=== PATIENT | female | born 1990 | race Caucasian/White ===

== ENCOUNTER 2016-12-25 18:25 | Emergency (ER) | payer MEDICAID ==
[~2016-12-25] VITALS: Ht 157.5 cm; Wt 66.6 kg
[~2016-12-25 18:25] MED LIST: FERR27TA PO; PREN1TAB49 PO
[2016-12-25 18:51] VITALS: Ht 157.5 cm; Wt 66.6 kg
[2016-12-25 21:04] LABS: ADD UMIC YES; URINE BILIRUBIN (Dip) NEGATIVE (NEGATIVE); URINE BLOOD (Dip) 3+ (NEGATIVE); URINE COLOR LT. YELLOW (YELLOW); URINE GLUCOSE (Dip) NEGATIVE (NEGATIVE); URINE KETONES (Dip) NEGATIVE (NEGATIVE); URINE LEUKOCYTE ESTERASE (Dip) 1+ (NEGATIVE); URINE NITRITE (Dip) NEGATIVE (NEGATIVE); URINE TOTAL PROTEIN (Dip) NEGATIVE (NEGATIVE); URINE UROBILINOGEN (Dip) 0.2 E.U./dL (0.1-1.0)
[2016-12-25 21:09] LABS: BASOPHILS % 0.4 % (0.0-2.0); EOSINOPHILS # 0.2 10^3/ul (0.0-0.5); EOSINOPHILS % 1.5 % (0.0-7.0); HEMATOCRIT 41.9 % (37.0-47.0); HEMOGLOBIN 14.2 g/dl (12.0-16.0); LYMPHOCYTES # 3.3 10^3/ul (0.8-2.9); LYMPHOCYTES % 28.2 % (15.0-51.0); MEAN CORPUSCULAR HEMOGLOBIN 30.2 pg (29.0-33.0); MEAN CORPUSCULAR HGB CONC 33.8 g/dl (32.0-37.0); MEAN CORPUSCULAR VOLUME 89.3 fl (82.0-101.0); MEAN PLATELET VOLUME 9.2 fl (7.4-10.4); MONOCYTE # 0.6 10^3/ul (0.3-0.9); MONOCYTES % 5.5 % (0.0-11.0); NEUTROPHIL # 7.4 10^3/ul (1.6-7.5); NEUTROPHILS % 64.4 % (39.0-77.0); PLATELET COUNT 228 10^3/UL (140-440); RED CELL DISTRIBUTION WIDTH 13.9 % (11.5-14.5); UNCORRECTED WBC 11.6 10^3/ul (4.8-10.8); WHITE BLOOD COUNT 11.6 10^3/ul (4.8-10.8)
[2016-12-25 21:13] LABS: BACTERIA,URINE FEW
[2016-12-25 21:14] LABS: CONDITION 1
--- NOTE | 2016-12-25 21:25 | RADRPT ---
PROCEDURE: US OB. CLINICAL INDICATION: Positive , vaginal bleeding TECHNIQUE: Transabdominal and transvaginal views of the pelvis are available for review. COMPARISON: No prior studies are available for comparison. FINDINGS: Uterus: Normal. There is no evidence of myometrial mass. Endometrial cavity: No intrauterine is identified, the thickness is normal measuring 7.9 mm. Right ovary / adnexa: Ovarian size is normal measuring 2.6 x 2.4 x 1.2 cm and there is no evidence of adnexal mass. Normal blood flow on Doppler interrogation is present. Left ovary/adnexa: Ovarian size is normal measuring 2.9 x 2.3 x 1.8 cm with no evidence of adnexal mass. Possible corpus luteum cyst of 1.7 x 1.2 x 1.1 cm is suggested. Normal blood flow seen on Dopp ler interrogation. Cul-de-sac: No evidence of free fluid. RPTAT:HJJR IMPRESSION: No intrauterine identified. Ectopic is not excluded, but there are no suspiciou s findings at this time. Correlation with serial beta HCGs is suggested with followup as clinically indicated. Physician Raf Date Time Electronically viewed and signed by Physician Raf on 12/25/2016 21:25 /
[2016-12-25 23:08] VITALS: BP 109/61; PULSE 59; RESP 18; TEMP 98.4
--- NOTE | 2016-12-26 01:41 | ERD ---
ER Documentation Chief Complaint Date/Time DATE: 12/26/16 TIME: 01:38 Chief Complaint Vag bleed. 5 wks . seen in [facility] ER yesterday on antibiotics HPI 26-year-old female who is a presents the ED complaining of vaginal bleeding that started 3 days ago. States that she was seen at [facility] and was discharged with a urinary tract infection and was prescribed Keflex. Reports that she has been taking it for 2 days. States that there was no heart tones noted on the ultrasound. States that she has had to change one pad. Reports that she has hematuria. States that her last menses was on November 08, 2016. Denies any chest pain, shortness of breath, abdominal pain, nausea, vomiting, diarrhea. States that she is unsure of her [employer] name. ROS All systems reviewed and are negative except as per history of present illness. Medications Home Meds Reported Medications Vits W-Ca,Fe,Fa(<1MG) () 1 Tab Tablet, 1 TAB PO 08/27/12 Ferrous Sulfate (Iron) 1 Tab Tablet, 1 TAB PO 08/27/12 Allergies Allergies: Coded Allergies: No Known Allergies (Verified Allergy, 08/27/12) PMhx/Soc Medical and Surgical Hx: pt denies Surgical Hx History of Surgery: No Anesthesia Reaction: No Hx Neurological Disorder: No Hx Respiratory Disorders: No Hx Cardiac Disorders: No Hx Psychiatric Problems: No Hx Miscellaneous Medical Probl: Yes (UTI diagnosed 12/2016) Hx Alcohol Use: No Hx Substance Use: No Hx Tobacco Use: No Smoking Status: Never smoker Physical Exam Vitals Temp 98.4 Pulse 70 SBP 119 DBP 61 Resp 187 O2 Sat 100 Pain Intensity 2 Physical Exam Const: [id number]-[id number], well-nourished. In no acute distress. Head: Atraumatic, normocephalic Eyes: Normal Conjunctiva without injection. No purulent discharge. ENT: Normal external ear, nose. Moist oropharynx without tonsillar exudates. Non -erythematous pharynx. Uvula midline. No drooling. No trismus. Neck: No cervical midline tenderness. Full range of motion. No meningismus. No cervical lymphadenopathy. No JVD. Resp: Clear to auscultation bilaterally. No wheezing, rhonchi, rales, or crackles. No accessory muscle use. No retractions. Cardio: Regular rate and rhythm. No murmurs, rubs or gallops. Abd: Soft, nontender to palpation, non distended. Normal bowel sounds. No palpable masses. No rebound tenderness. No guarding. Negative McBurney's point. Negative psoas sign. Negative obturator sign. Skin: No petechiae or rashes Back: No midline tenderness. No CVA tenderness. Ext: No cyanosis, or edema. Neur: Awake and alert. Normal gait. Normal coordination. Psych: Normal Mood and Affect Results 24 hrs Laboratory Tests Test 12/25/16 20:47 Basophils # 0.010^3/ul Basophils % 0.4% Beta HCG, Quantitative 107.1mIU/ml Eosinophils # 0.210^3/ul Eosinophils % 1.5% Hematocrit 41.9% Hemoglobin 14.2g/dl Lymphocytes # 3.310^3/ul Lymphocytes % 28.2% Mean Corpuscular Hemoglobin 30.2pg Mean Corpuscular Hemoglobin Concent 33.8g/dl Mean Corpuscular Volume 89.3fl Mean Platelet Volume 9.2fl Monocytes # 0.610^3/ul Monocytes % 5.5% Neutrophils # 7.410^3/ul Neutrophils % 64.4% Nucleated Red Blood Cells # 0.010^3/ul Nucleated Red Blood Cells % 0.0/100WBC Platelet Count 62090^3/UL Red Blood Count 4.7010^6/ul Red Cell Distribution Width 13.9% Urine Bacteria FEW Urine Bilirubin NEGATIVE Urine Clarity SLIGHTLY CLOUDY Urine Color LT. YELLOW Urine Epithelial Cells MODERATE Urine Glucose NEGATIVE% Urine Hemoglobin 3+ Urine Ketones NEGATIVE Urine Leukocyte Esterase 1+ Urine Microscopic RBC 5-10/HPF Urine Microscopic WBC 10-25/HPF Urine Nitrite NEGATIVE Urine Specific [place] 1.025 Urine Total Protein NEGATIVE Urine Urobilinogen 0.2 E.U./dL Urine pH 6.0 White Blood Count 11.610^3/ul Procedures/MDM 26-year-old female with no significant past medical history presents the ED as a for vaginal bleeding. Patient is afebrile nontoxic appearing. Patient has normal vital signs. An ultrasound, beta-hCG, CBC, type and RH, UA was ordered to evaluate patient. CBC: Leukocytosis of 11.6 likely due to stress reaction or anemia Urine: No elevation in nitrites, 1+ leukocyte esterase with 10-25 WBC, hematuria. No evidence of UTI Rh: O positive No indication for Rhogam at this time. beta Hc.1 PROCEDURE: US OB. CLINICAL INDICATION: Positive , vaginal bleeding TECHNIQUE: Transabdominal and transvaginal views of the pelvis are available for review. COMPARISON: No prior studies are available for comparison. FINDINGS: Uterus: Normal. There is no evidence of myometrial mass. Endometrial cavity: No intrauterine is identified, the thickness is normal measuring 7.9 mm. Right ovary / adnexa: Ovarian size is normal measuring 2.6 x 2.4 x 1.2 cm and there is no evidence of adnexal mass. Normal blood flow on Doppler interrogation is present. Left ovary/adnexa: Ovarian size is normal measuring 2.9 x 2.3 x 1.8 cm with no evidence of adnexal mass. Possible corpus luteum cyst of 1.7 x 1.2 x 1.1 cm is suggested. Normal blood flow seen on Doppler interrogation. Cul-de-sac: No evidence of free fluid. RPTAT:HJJR IMPRESSION: No intrauterine identified. Ectopic is not excluded, but there are no suspicious findings at this time. Correlation with serial beta HCGs is suggested with followup as clinically indicated. Patient's bleeding symptoms have stabilized while in the department. At this time there is no IUP identified. Patient was instructed to return to the ED in 2 days for a repeat beta hCG and ultrasound to rule out ectopic . Low suspicion for symptomatic anemia, sepsis, PID, appendicitis, ovarian torsion, tubo-ovarian abscess, surgical abdomen, or other emergent conditions. Patient was educated that there is a risk for threatened . Strictly instructed patient to continue taking Keflex prescribed by previous provider for her UTI. Patient to follow up with [employer] or here in the ED in 2 days for further evaluation and treatment. Patient is to return sooner to the ED for any worsening symptoms. Patient's questions were answered. Patient understood and agreed with discharge plan. Departure Diagnosis: Primary Impression: Vaginal bleeding in patient at less than 20 weeks ges... Condition: Stable Patient Instructions: Bleeding During Early Referrals: COMMUNITY CLINICS YOU HAVE RECEIVED A MEDICAL SCREENING EXAM AND THE RESULTS INDICATE THAT YOU DO NOT HAVE A CONDITION THAT REQUIRES URGENT TREATMENT IN THE EMERGENCY DEPARTMENT. FURTHER EVALUATION AND TREATMENT OF YOUR CONDITION CAN WAIT UNTIL YOU ARE SEEN IN YOUR DOCTORS OFFICE WITHIN THE NEXT 1-2 DAYS. IT IS YOUR RESPONSIBILITY TO MAKE AN APPOINTMENT FOR FOLOW-UP CARE. IF YOU HAVE A PRIMARY DOCTOR --you should call your primary doctor and schedule an appointment IF YOU DO NOT HAVE A PRIMARY DOCTOR YOU CAN CALL OUR PHYSICIAN REFERRAL HOTLINE AT IF YOU CAN NOT AFFORD TO SEE A PHYSICIAN YOU CAN CHOSE FROM THE FOLLOWING [facility] [address] [facility] [address] [facility] [address] [facility] [address] [facility] [address] [facility] [facility] [address] [facility]. [facility] YOU HAVE RECEIVED A MEDICAL SCREENING EXAM AND THE RESULTS INDICATE THAT YOU DO NOT HAVE A CONDITION THAT REQUIRES URGENT TREATMENT IN THE EMERGENCY DEPARTMENT. FURTHER EVALUATION AND TREATMENT OF YOUR CONDITION CAN WAIT UNTIL YOU ARE SEEN IN YOUR DOCTORS OFFICE WITHIN THE NEXT 1-2 DAYS. IT IS YOUR RESPONSIBILITY TO MAKE AN APPOINTMENT FOR FOLOW-UP CARE. IF YOU HAVE A PRIMARY DOCTOR --you should call your primary doctor and schedule and appointment IF YOU DO NOT HAVE A PRIMARY DOCTOR YOU CAN CALL OUR PHYSICIAN REFERRAL HOTLINE AT . IF YOU CAN NOT AFFORD TO SEE A PHYSICIAN YOU CAN CHOSE FROM THE FOLLOWING [facility] INSTITUTIONS: [facility] [address] [place] [address] [facility] [address] [place] [address] [facility] [address] [place] [address] [employer] [address] [facility] [address] [place] [address] OFFICE FAX MARINA NUNEZ [address] [place] [id number] [address] BLUM LEANNA [address] [place] [address] DR SANCHEZ, [facility] [address] [facility], [address], [place] [address] [facility] [address] [facility], [place] [address] [facility] [address] [place] [address] [facility], [facility] [address] [address] RINCON PAYAM [address] [place] [address] DR ASHFORD, [place] [address] [facility]. [address], [place] [address] DR SIBLEY, [facility] [address] [place] [address] [facility] Hours: 8:00 am - 5:00 pm Additional Instructions: Continue taking the Keflex antibiotics for your urinary tract infection prescribed by your [employer]. FOLLOW UP WITH YOUR [employer] or HERE IN THE ED in 2 DAYS FOR REPEAT BETA HCG AND ULTRASOUND. Return to this facility if you are not improving as expected. HAILEY WALTON PA-C Dec 26, 2016 01:41 DAYS FOR REPEAT BETA HCG AND ULTRASOUND. Return to this facility if you are not improving as expected. HAILEY WALTON PA-C Dec 26, 2016 01:41
== END 2016-12-25 23:08 | disposition home or self-care (01) ==
LOC: FTE 18:25
DX: O20.9 Hemorrhage in early pregnancy, unspecified (principal); Z3A.01 Less than 8 weeks gestation of pregnancy
CPT/HCPCS: 36415; 76801; 76817; 81001; 84702; 85025; 86900; 86901; Z7502; 81003